=== PATIENT | female | born 1980 | race American Indian/Alaskan Native ===

== ENCOUNTER 2016-10-07 11:34 | Emergency (ER) | payer SELFPAY ==
[2016-10-07 11:50] VITALS: BP 115/81
[2016-10-07 12:20] LABS: Hematocrit 35.8 % (30.3-42.9); Hemoglobin 11.8 gm/dl (10.1-14.3); Mean Corpuscular HGB Conc 33 % (30-34); Mean Corpuscular Hemoglobin 29 pg (28-32); Mean Corpuscular Volume 89 fl (79-97); Platelet Count 288 K/mm3 (140-440); Red Blood Count 4.03 M/mm3 (3.65-5.03); Red Cell Distribution Width 13.8 % (13.2-15.2); White Blood Count 4.8 K/mm3 (4.5-11.0)
[2016-10-07 12:28] LABS: Bacteria,Urine 1+ /HPF (Negative); Bilirubin,Urine NEG (Negative); Blood,Urine NEG (Negative); Ketones,Urine NEG (Negative); Leukocyte Esterase,Urine SM (Negative); Nitrite,Urine NEG (Negative); Protein,Urine <15 mg/dL mg/dL (Negative); Urobilinogen,Urine < 2.0 mg/dL (<2.0)
[2016-10-07 12:29] LABS: Anion Gap 18 mmol/L; Blood Urea Nitrogen 5 mg/dL (7-17); Calcium 9.2 mg/dL (8.4-10.2); Carbon Dioxide 22 mmol/L (22-30); Chloride 105.1 mmol/L (98-107); Glucose 88 mg/dL (65-100); Potassium 4.3 mmol/L (3.6-5.0); Sodium 141 mmol/L (137-145)
[2016-10-07] MEDS ORDERED: ZOFRAN ODT PO ONE (14:01)
--- NOTE | 2016-10-07 14:24 | Emergency Department Report ---
ED N/V/D HPI - General Chief complaint: Nausea/Vomiting/Diarrhea Stated complaint: VOMITING AND DIARRHEA Time Seen by Provider: 10/07/16 13:48 Source: patient Mode of arrival: Ambulatory Limitations: No Limitations - History of Present Illness Initial comments: Patient comes in to the ER today with complaints of diarrhea, nausea, vomiting that started 2 days ago. Patient states she woke up not feeling good with subsequent diarrhea to follow. Patient denies any travel outside the country. Patient states last menstrual cycle was 15 days ago. Patient asking and concerned as if she might be . Vision further notes that the diarrhea has seemed to stop that she is still very nauseous with vomiting. MD complaint: nausea, vomiting, diarrhea, abdominal pain -: days(s) (2) Description of Diarrhea: water Location: diffuse Radiation: none Severity: moderate Quality: cramping Consistency: intermittent Improves with: none Worsens with: eating Associated Symptoms: nausea/vomiting. denies: fever/chills, headaches, dysuria - Related Data Previous Rx's Medication Instructions Recorded Last Taken Type Ciprofloxacin HCl [Ciprofloxacin 500 mg PO Q12HR 7 Days 10/07/16 Unknown Rx TAB] Dicyclomine [Bentyl] 10 mg PO QID PRN #12 capsule 10/07/16 Unknown Rx Promethazine [Phenergan TAB] 25 mg PO Q8HR PRN #12 tab 10/07/16 Unknown Rx Allergies Allergy/AdvReac Type Severity Reaction Status Date / Time No Known Allergies Allergy Unverified 10/07/16 11:44 ED Review of Systems ROS: Stated complaint: VOMITING AND DIARRHEA Other details as noted in HPI Constitutional: denies: chills, fever Eyes: denies: eye pain, eye discharge, vision change ENT: denies: ear pain, throat pain Respiratory: denies: cough, shortness of breath, wheezing Cardiovascular: denies: chest pain, palpitations Endocrine: no symptoms reported Gastrointestinal: abdominal pain, nausea, vomiting, diarrhea. denies: constipation, hematemesis, melena, hematochezia Genitourinary: denies: urgency, dysuria, discharge Musculoskeletal: denies: back pain, joint swelling, arthralgia Skin: denies: rash, lesions Neurological: denies: headache, weakness, paresthesias Psychiatric: denies: anxiety, depression Hematological/Lymphatic: denies: easy bleeding, easy bruising ED Past Medical Hx - Past Medical History Previous Medical History?: Yes - Surgical History Past Surgical History?: Yes Additional Surgical History: x 2 - Social History Smoking Status: Never Smoker Substance Use Type: Tranquilizers - Medications Home Medications: Home Medications Medication Instructions Recorded Confirmed Last Taken Type Ciprofloxacin HCl [Ciprofloxacin 500 mg PO Q12HR 7 Days 10/07/16 Unknown Rx TAB] Dicyclomine [Bentyl] 10 mg PO QID PRN #12 capsule 10/07/16 Unknown Rx Promethazine [Phenergan TAB] 25 mg PO Q8HR PRN #12 tab 10/07/16 Unknown Rx ED Physical Exam - General Limitations: No Limitations General appearance: alert, in no apparent distress - Head Head exam: Present: atraumatic, normocephalic - Eye Eye exam: Present: normal appearance - ENT ENT exam: Present: normal orophraynx, mucous membranes dry, mucous membranes moist - Neck Neck exam: Present: normal inspection - Respiratory Respiratory exam: Present: normal lung sounds bilaterally. Absent: respiratory distress, wheezes, rales, rhonchi - Cardiovascular Cardiovascular Exam: Present: regular rate, normal rhythm. Absent: systolic murmur, diastolic murmur, rubs, gallop - GI/Abdominal GI/Abdominal exam: Present: soft, tenderness (generalized abdominal tenderness.) , hyperactive bowel sounds. Absent: distended, guarding, rebound, rigid - Extremities Exam Extremities exam: Present: normal inspection - Back Exam Back exam: Present: normal inspection - Neurological Exam Neurological exam: Present: alert, oriented X3 - Psychiatric Psychiatric exam: Present: normal affect, normal mood - Skin Skin exam: Present: warm, dry, intact, normal color. Absent: rash ED Course Vital Signs 10/07/16 11:44 Temperature 98.2 F Pulse Rate 71 Respiratory 20 Rate Blood Pressure 115/81 O2 Sat by Pulse 100 Oximetry ED Medical Decision Making - Lab Data Result diagrams: 10/07/16 11:54 10/07/16 11:54 Laboratory results reviewed and discussed with patient in room. Only abnormal finding in lab testing is that of potential urinary tract infection as trace amount of leukocytes were noted - Medical Decision Making Patient is nontoxic and hemodynamically stable. Patient has normal blood testing results and patient is not . Patient's symptoms and exam findings are more consistent with gastroenteritis. Patient does seem to have mild headache tract infection and I will start patient on antibiotics for such as well as treat her symptomatically with some anti-emetics on an outpatient basis. The patient is to follow-up with her primary care doctor if symptoms don 't resolve or worsen. Patient is stable for discharge and in his [place] treatment plan. Patient was given Zofran 4 mg ODT here in the ER for symptomatic relief of her nausea. Critical care attestation.: If time is entered above; I have spent that time in minutes in the direct care of this critically ill patient, excluding procedure time. ED Disposition Clinical Impression: Nausea vomiting and diarrhea, UTI (urinary tract infection) Disposition: DISCHARGED TO HOME OR SELFCARE Is pt being admited?: No Does the pt Need Aspirin: No Condition: Good Instructions: Urinary Tract Infection in Women (ED), Gastroenteritis (ED), Acute Nausea and Vomiting (ED) Prescriptions: Ciprofloxacin HCl [Ciprofloxacin TAB] 500 mg PO Q12HR 7 Days Dicyclomine [Bentyl] 10 mg PO QID PRN #12 capsule PRN Reason: cramping Promethazine [Phenergan TAB] 25 mg PO Q8HR PRN #12 tab PRN Reason: Nausea Referrals: PRIMARY CARE, [Primary Care Provider] - 3-5 Days Time of Disposition: 14:33
== END 2016-10-07 14:39 | disposition home or self-care (01) ==
LOC: ED 11:34
DX: N39.0 Urinary tract infection, site not specified (principal); R11.2 Nausea with vomiting, unspecified; R19.7 Diarrhea, unspecified
CPT/HCPCS: 36415; 80048; 81001; 81025; 85025; 99283; Q0162

== ENCOUNTER 2017-01-03 18:20 | Emergency (ER) | payer OTHER ==
[2017-01-03 19:41] VITALS: BP 108/71
[2017-01-03 20:39] LABS: Basophils % (Auto) 0.7 % (0.0-1.8); Eosinophils % (Auto) 0.7 % (0.0-4.3); Hematocrit 38.6 % (30.3-42.9); Hemoglobin 12.6 gm/dl (10.1-14.3); Mean Corpuscular HGB Conc 33 % (30-34); Mean Corpuscular Hemoglobin 29 pg (28-32); Mean Corpuscular Volume 89 fl (79-97); Platelet Count 262 K/mm3 (140-440); Red Blood Count 4.36 M/mm3 (3.65-5.03); Red Cell Distribution Width 13.7 % (13.2-15.2); White Blood Count 5.8 K/mm3 (4.5-11.0)
[2017-01-04 00:21] LABS: Bilirubin,Urine NEG (Negative); Blood,Urine LG (Negative); Ketones,Urine NEG (Negative); Leukocyte Esterase,Urine NEG (Negative); Nitrite,Urine NEG (Negative); Protein,Urine <15 mg/dL mg/dL (Negative); Urobilinogen,Urine < 2.0 mg/dL (<2.0); WBC,Urine < 1.0 /HPF (0.0-6.0)
--- NOTE | 2017-01-24 15:20 | ED Elopement Review ---
ED Pt Elopement review - Results review Lab results: Laboratory Tests 01/03/17 01/03/17 01/03/17 20:20 20:20 20:20 WBC 5.8 RBC 4.36 Hgb 12.6 Hct 38.6 MCV 89 MCH 29 MCHC 33 RDW 13.7 Plt Count 262 Lymph % (Auto) 38.2 H Harper % (Auto) 5.1 Eos % (Auto) 0.7 Baso % (Auto) 0.7 Lymph # 2.2 Harper # 0.3 Eos # 0.0 Baso # 0.0 Seg Neutrophils % 55.3 Seg Neutrophils # 3.2 HCG, Quant 416.4 H Urine Color Urine Turbidity Urine pH Ur Specific [place] Urine Protein Urine Glucose (UA) Urine Ketones Urine Blood Urine Nitrite Urine Bilirubin Urine Urobilinogen Ur Leukocyte Esterase Urine WBC (Auto) Urine RBC (Auto) U Epithel Cells (Auto) Blood Type B POSITIVE Antibody Screen Negative 01/03/17 Unknown WBC RBC Hgb Hct MCV MCH MCHC RDW Plt Count Lymph % (Auto) [place] % (Auto) Eos % (Auto) Baso % (Auto) Lymph # Harper # Eos # Baso # Seg Neutrophils % Seg Neutrophils # HCG, Quant Urine Color Yellow Urine Turbidity Clear Urine pH 8.0 H Ur Specific [place] 1.010 Urine Protein <15 mg/dl Urine Glucose (UA) Neg Urine Ketones Neg Urine Blood Lg Urine Nitrite Neg Urine Bilirubin Neg Urine Urobilinogen < 2.0 Ur Leukocyte Esterase Neg Urine WBC (Auto) < 1.0 Urine RBC (Auto) 1.0 U Epithel Cells (Auto) 5.0 Blood Type Antibody Screen - Call Back decision Pt Call Back Decision: Call pt to return to ED KAYDEN (vaginal bleeding and should be further evaluated. Consider ultrasound)
== END 2017-01-04 04:05 | disposition left against medical advice (07) ==
LOC: ED 18:20
DX: O20.9 Hemorrhage in early pregnancy, unspecified (principal); Z3A.01 Less than 8 weeks gestation of pregnancy; Z53.21 Procedure and treatment not carried out due to patient leaving prior to being seen by health care provider
CPT/HCPCS: 36415; 81001; 84702; 85025; 86850; 86900; 86901

== ENCOUNTER 2017-01-04 10:31 | Emergency (ER) | payer OTHER ==
[2017-01-04 11:04] VITALS: BP 102/69
--- NOTE | 2017-01-04 11:14 | Emergency Department Report ---
Chief Complaint: Vaginal Bleeding Stated Complaint: 6 WKS PREG/BLEEDING/CRAMPS Time Seen by Provider: 01/04/17 11:10 - HPI History of Present Illness: PT states she has had vaginal bleeding since yesterday PT states she is 6 weeks . PT has not seen OB/ RN ICU yet - ROS Review of Systems: + lower abd pain + vaginal bleeding - Exam Vital Signs: Vital Signs 01/04/17 11:02 Temperature 98.8 F Pulse Rate 81 Respiratory 18 Rate Blood Pressure 102/69 O2 Sat by Pulse 100 Oximetry Physical Exam: PT looks well, non toxic. exam not done in triage MSE screening note: Focused history and physical exam performed. Due to findings the following was ordered: labs, us ED Disposition for MSE Condition: Stable
--- NOTE | 2017-01-04 14:20 | Ultrasound Report ---
ULTRASOUND OB LESS THAN 14 WEEKS FETUS ULTRASOUND OB TRANSVAGINAL HISTORY: Vaginal bleeding. TECHNIQUE: Transabdominal and transvaginal ultrasound with color doppler interrogation. No comparison. The uterus is anteverted and measures 10 x 4 x 5 cm. No uterine mass is identified. The endometrial stripe measures 11 mm. There is a tiny cyst within the endometrium measuring 2 mm. It is unclear if this represents a tiny gestational sac or endometrial cyst. It is too small to date. No pole, yolk sac or heart tones are demonstrated. The right ovary is unremarkable measuring 3.3 x 2.4 x 1.7 cm. The left ovary measures 4.9 x 1.8 x 3.4 cm and contains a 2.8 x 1.8 x 1.7 cm simple cyst. No pelvic fluid collection. IMPRESSION: No convincing intrauterine is demonstrated. There is a tiny cyst within the endometrium which could represent a very early gestational sac or endometrial cyst. Continued followup is recommended. Left ovarian cyst.
[2017-01-04 14:50] LABS: Hematocrit 38.3 % (30.3-42.9); Hemoglobin 12.4 gm/dl (10.1-14.3); Mean Corpuscular HGB Conc 32 % (30-34); Mean Corpuscular Hemoglobin 29 pg (28-32); Mean Corpuscular Volume 88 fl (79-97); Platelet Count 241 K/mm3 (140-440); Red Blood Count 4.36 M/mm3 (3.65-5.03); Red Cell Distribution Width 13.4 % (13.2-15.2); White Blood Count 4.8 K/mm3 (4.5-11.0)
--- NOTE | 2017-01-04 15:50 | Emergency Department Report ---
ED Female HPI - General Chief complaint: Vaginal Bleeding Stated complaint: 6 WKS PREG/BLEEDING/CRAMPS Time Seen by Provider: 01/04/17 11:10 Source: patient Mode of arrival: Ambulatory Limitations: No Limitations - History of Present Illness Initial comments: PT states she was here yesterday for same. PT states she is still bleeding. PT states she is 6 weeks . 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 PT states she has intermittent abd cramping along with her bleeding. PT states she had blood work done yesterday but she was not told the results. PT states she just wants to know what is going on. G3, P 2 Complaint: vaginal bleeding -: Gradual, days(s) Quality: cramping Consistency: constant Improves with: none Worsens with: none Are you Now?: Yes Last Menstrual Period: 11/21/16 EDC: 08/28/17 Associated Symptoms: vaginal bleeding, abdominal pain. denies: dysuria - Related Data Previous Rx's Medication Instructions Recorded Last Taken Type Acetaminophen/Codeine [Tylenol #3] 1 tab PO Q6H PRN #12 tab 01/04/17 Unknown Rx Ondansetron [Zofran Odt] 4 mg PO Q8HR PRN #10 tab.rapdis 01/04/17 Unknown Rx Allergies Allergy/AdvReac Type Severity Reaction Status Date / Time No Known Allergies Allergy Unverified 10/07/16 11:44 ED Review of Systems ROS: Stated complaint: 6 WKS PREG/BLEEDING/CRAMPS Other details as noted in HPI Comment: All other systems reviewed and negative Constitutional: denies: fever Gastrointestinal: abdominal pain. denies: vomiting Genitourinary: abnormal menses, other (vaginal spotting ). denies: dysuria ED Past Medical Hx - Past Medical History Previous Medical History?: No - Surgical History Past Surgical History?: Yes Additional Surgical History: x 2, appy - Social History Smoking Status: Never Smoker Substance Use Type: None - Medications Home Medications: Home Medications Medication Instructions Recorded Confirmed Last Taken Type Acetaminophen/Codeine [Tylenol #3] 1 tab PO Q6H PRN #12 tab 01/04/17 Unknown Rx Ondansetron [Zofran Odt] 4 mg PO Q8HR PRN #10 tab.rapdis 08/15/17 Unknown Rx ED Physical Exam - General Limitations: No Limitations General appearance: alert, in no apparent distress - Head Head exam: Present: atraumatic, normocephalic, normal inspection - Eye Eye exam: Present: normal appearance, PERRL, EOMI. Absent: conjunctival injection - ENT ENT exam: Present: normal exam, mucous membranes moist, normal external ear exam - Neck Neck exam: Present: normal inspection, full ROM - Respiratory Respiratory exam: Present: normal lung sounds bilaterally. Absent: respiratory distress, rhonchi - Cardiovascular Cardiovascular Exam: Present: regular rate, normal rhythm, normal heart sounds - GI/Abdominal GI/Abdominal exam: Present: soft. Absent: tenderness, guarding, rebound - Extremities Exam Extremities exam: Present: normal inspection, full ROM - Back Exam Back exam: Present: normal inspection, full ROM - Neurological Exam Neurological exam: Present: alert, oriented X3, normal gait - Psychiatric Psychiatric exam: Present: normal affect, normal mood - Skin Skin exam: Present: warm, dry, intact, normal color ED Course Vital Signs 01/04/17 11:02 Temperature 98.8 F Pulse Rate 81 Respiratory 18 Rate Blood Pressure 102/69 O2 Sat by Pulse 100 Oximetry - Reevaluation(s) Reevaluation #1: 01/04/17 15:51 PT aware of decrease in bhcg since yesterday. PT aware of US results. PT denies abd pain at this time. PT aware she will need to follow up with OB/ RADIATION ENGINEER. Strict return precautions given - Pulse Oximetry Interpretation Digit-Finger Initial Pulse Oximetry Readin Actions Taken: none ED Medical Decision Making - Lab Data Result diagrams: 01/04/17 14:11 Labs 01/04/17 01/04/17 01/04/17 11:18 14:11 14:11 WBC 4.8 RBC 4.36 Hgb 12.4 Hct 38.3 MCV 88 MCH 29 MCHC 32 RDW 13.4 Plt Count 241 HCG, Quant 274.3 H Blood Type B POSITIVE Antibody Screen Negative - Radiology Data Radiology results: report reviewed US- OB/ RADIATION ENGINEER - no definitive IUP seen, left ovarian cyst - Differential Diagnosis spontanous misscarriage, bleeding in early iup Critical Care Time: No Critical care attestation.: If time is entered above; I have spent that time in minutes in the direct care of this critically ill patient, excluding procedure time. ED Disposition Clinical Impression: Threatened in early , Left ovarian cyst Disposition: DC- TO HOME OR SELFCARE Is pt being admited?: No Does the pt Need Aspirin: No Condition: Stable Instructions: Spontaneous Miscarriage (ED), Threatened Miscarriage (ED) Additional Instructions: No driving or alcohol after taking Tylenol #3 Return to the ED if you start having heavy vaginal bleeding (soaking a pad an hour) or pain that is not controlled Follow up with OB/ RADIATION ENGINEER in the next 3-5 days You may need repeat lab work and US Prescriptions: Acetaminophen/Codeine [Tylenol #3] 1 tab PO Q6H PRN #12 tab PRN Reason: Pain , Severe (7-10) Ondansetron [Zofran Odt] 4 mg PO Q8HR PRN #10 tab.rapdis PRN Reason: Nausea Referrals: PRIMARY CARE, [Primary Care Provider] - 3-5 Days JONNY QUIROZ MD [Staff Physician] - 3-5 Days [facility] [Outside] - 3-5 Days Forms: Accompanied Note Time of Disposition: 15:55
== END 2017-01-04 16:08 | disposition home or self-care (01) ==
LOC: ED 10:31
DX: O20.0 Threatened abortion (principal); O34.81 Maternal care for other abnormalities of pelvic organs, first trimester; N83.202 Unspecified ovarian cyst, left side
CPT/HCPCS: 36415; 76801; 76817; 84702; 85027; 86850; 86900; 86901

== ENCOUNTER 2017-11-16 05:43 | Inpatient (IN) | payer OTHER ==
[2017-11-16] MEDS ORDERED: BICITRA PO SCH (11:03)
[2017-11-16] MEDS ORDERED: PEPCID IV SCH (11:03)
[2017-11-16] MEDS ORDERED: REGLAN IV SCH (11:03)
[2017-11-16 11:18] LABS: Basophils % (Auto) 0.4 % (0.0-1.8); Eosinophils # (Auto) 0.1 K/mm3 (0.0-0.4); Eosinophils % (Auto) 0.8 % (0.0-4.3); Hematocrit 33.9 % (30.3-42.9); Hemoglobin 11.6 gm/dl (10.1-14.3); Lymphocytes # (Auto) 2.4 K/mm3 (1.2-5.4); Lymphocytes % (Auto) 33.2 % (13.4-35.0); Mean Corpuscular HGB Conc 34 % (30-34); Mean Corpuscular Hemoglobin 32 pg (28-32); Mean Corpuscular Volume 93 fl (79-97); Monocytes # (Auto) 0.7 K/mm3 (0.0-0.8); Monocytes % (Auto) 9.6 % (0.0-7.3); Platelet Count 197 K/mm3 (140-440); Red Blood Count 3.63 M/mm3 (3.65-5.03); Red Cell Distribution Width 14.6 % (13.2-15.2)
[2017-11-16] MEDS ORDERED: NACL 0.9% 1000 ML 0 ML ONE (11:32)
[2017-11-16] MEDS ORDERED: REGLAN ONE (11:33)
[2017-11-16] MEDS ORDERED: PEPCID IV ONE (11:33)
[2017-11-16] MEDS ORDERED: BICITRA ONE (11:33)
--- NOTE | 2017-11-16 11:37 | History and Physical Report ---
History of Present Illness Date of examination: 11/16/17 Date of admission: 11/16/17 10:25 Chief complaint: Repeat C Section History of present illness: Pt is a 36yo BF EDC 11/19/17; EGA 39 4/7 weeks presents for a Repeat C Section. She received late care with [facility] since 25 weeks and was refereed to [facility] due to history of demise and previous C Section x 2. records are available, but GBS is unknown. Past History Past Medical History: asthma Past Surgical History: appendectomy, section Family/Genetic History: hypertension Social history: no significant social history, - Obstetrical History Expected Date of Delivery: 11/19/17 Actual Gestation: 39 Week(s) 4 Day(s) : 3 Medications and Allergies Allergies Allergy/AdvReac Type Severity Reaction Status Date / Time No Known Allergies Allergy Unverified 10/07/16 11:44 Home Medications Medication Instructions Recorded Confirmed Last Taken Type Acetaminophen/Codeine [Tylenol #3] 1 tab PO Q6H PRN #12 tab 01/04/17 Unknown Rx Ondansetron [Zofran Odt] 4 mg PO Q8HR PRN #10 tab.rapdis 01/04/17 Unknown Rx Active Meds: Active Medications Citric Acid/Sodium Citrate (Bicitra) 30 ml PO ONCE JOO Stop: 11/16/17 23:00 Last Admin: 11/16/17 11:29 Dose: 30 ml Famotidine (Pepcid) 20 mg IV ONCE JOO Stop: 11/16/17 23:00 Last Admin: 11/16/17 11:29 Dose: 20 mg Cefazolin Sodium (Ancef/Sterile Water 2 Gm/20 Ml) 2 gm in 20 mls @ 80 mls/hr IV PREOP NR; Protocol Stop: 11/16/17 23:00 Lactated Ringer's (Lactated Ringers) 1,000 mls @ 2,250 mls/hr IV PREOP JOO Stop: 11/17/17 12:27 Last Admin: 11/16/17 11:29 Dose: 2,250 mls/hr Oxytocin/Sodium Chloride (Pitocin/Ns 20 Unit/1000ml Drip) 20 units in 1,000 mls @ 0 mls/hr IV TITR JOO Metoclopramide HCl (Reglan) 10 mg IV ONCE JOO Stop: 11/16/17 23:00 Last Admin: 11/16/17 11:28 Dose: 10 mg Review of Systems All systems: negative - Vital Signs Vital signs: Vital Signs Temp Resp 99.1 F 20 11/16/17 10:28 11/16/17 10:28 Temp Pulse Resp BP Pulse Ox 99.1 F 82 20 98 11/16/17 10:28 11/16/17 11:10 11/16/17 10:28 11/16/17 11:10 - Physical Exam Breasts: Positive: deferred Cardiovascular: Regular rate Lungs: Positive: Clear to auscultation Abdomen: Positive: normal appearance Genitourinary (Female): Positive: normal external genitalia Uterus: Positive: enlarged Extremities: Positive: normal - Obstetrical FHR: category 1 Uterine Contraction Monitor Mode: External Results Result Diagrams: 11/16/17 10:45 Abnormal lab results 11/16/17 Range/Units 10:45 RBC 3.63 L (3.65-5.03) M/mm3 [place] % (Auto) 9.6 H (0.0-7.3) % All other labs normal. Assessment and Plan - Patient Problems (1) 39 weeks gestation of Onset Date: 11/16/17 Current Visit: Yes Status: Acute Plan to address problem: A: IUP @ 39 4/7 weeks Previous C Section x 2 P: Admit to L&D for repeat C Section (2) Previous section Onset Date: 11/16/17 Current Visit: Yes Status: Acute
[2017-11-16] MEDS ORDERED: LACTATED RINGERS 1,000 ML ONE (11:47)
[2017-11-16] MEDS ORDERED: PITOCin/NS 20 UNIT/1000ML DRIP 20 UNITS/1,000 ML BAG IV SCH ×2 (12:00→14:00)
[2017-11-16] MEDS ORDERED: LACTATED RINGERS 1,000 ML IV SCH (12:00)
[2017-11-16] MEDS ORDERED: ANCEF/STERILE WATER 2 GM/20 ML 2 GM/20 ML SYRINGE IV NR (12:00)
[2017-11-16] MEDS ORDERED: MORPHINE ONE (12:07)
[2017-11-16] MEDS ORDERED: WATER FOR IRRIG STERILE IR ONE (12:40)
[2017-11-16] MEDS ORDERED: NACL 0.9% IR ONE (12:40)
[2017-11-16] MEDS ORDERED: XYLOCAINE MPF 2% ONE ×4 (12:51)
[2017-11-16] MEDS ORDERED: TORADOL ONE (12:53)
[2017-11-16] MEDS ORDERED: PHENERGAN PR PRN (13:37)
[2017-11-16] MEDS ORDERED: PHENERGAN PO PRN (13:37)
[2017-11-16] MEDS ORDERED: NARCAN 0.4 MG/1 ML IV PRN ×2 (13:37→13:50)
[2017-11-16] MEDS ORDERED: ZOFRAN IV PRN (13:37)
--- NOTE | 2017-11-16 13:37 | Anesthesia Consultation ---
Anesthesia Consult and Med Hx Date of service: 11/16/17 - Airway Anesthetic Teeth Evaluation: Good ROM Head & Neck: Adequate Mental/Hyoid Distance: Adequate Mallampati Class: Class II Intubation Access Assessment: Good - Pulmonary Exam CTA: Yes - Cardiac Exam Cardiac Exam: No Murmur - Pre-Operative Health Status ASA Pre-Surgery Classification: ASA2 Proposed Anesthetic Plan: Epidural - Pulmonary Hx Asthma: No COPD: No Hx Pneumonia: No - Cardiovascular System Hx Hypertension: No - Central Nervous System Hx Seizures: No Hx Psychiatric Problems: No - Endocrine Hx Renal Disease: No Hx End Stage Renal Disease: No Hx Hypothyroidism: No Hx Hyperthyroidism: No - Hematic Hx Anemia: No Hx Sickle Cell Disease: No - Other Systems Hx Alcohol Use: No
--- NOTE | 2017-11-16 13:37 | Post Anesthesia Evaluation ---
- Post Anesthesia Evaluation Patient Participated: Yes Airway Patent: Yes Stable Respiratory Function: Yes Nausea/Vomiting: No Temp > 96.8F: Yes Pain Manageable: Yes Adequeate Hydration: Yes Anesthesia Complications: No
--- NOTE | 2017-11-16 13:46 | Operative Report ---
Operative Report Operative Report: Date of procedure: 11/16/2017 Pre-operative diagnosis: 1. Intrauterine at 39-4/7 weeks 2. Previous 2 Post-operative diagnosis: Same Procedure name(s): Repeat low transverse section Surgeon: Selvin Medina MD Watch Inspector: None Anesthesia: Epidural anesthesia by Dr. Paredes EBL: 750 mL Findings: A 4256 g female Apgars 8 at 1 minute and 9 at 5 minutes. Clear amniotic fluid. Normal uterus with lower uterine adhesions. Normal tubes and ovaries bilaterally. Procedure: After the patient was prepped and draped in usual sterile fashion, and after satisfactory level of epidural anesthesia was obtained, the skin knife was used to make a transverse skin incision through the previous skin scars. The incision was excised down to layer of the fascia, which was nicked in the midline and extended laterally using the Bovie cautery. The rectus muscles were dissected off the rectus fascia both superiorly and inferiorly. The rectus bellies in the midline, and the peritoneum was entered under direct visualization. The peritoneal incision was extended superiorly and inferiorly. A bladder flap was created and the bladder blade was then placed. The uterus was scored in a curvilinear linear fashion, entered in the midline revealing clear amniotic fluid. The infant's head was delivered onto the surgical field, and the oropharynx and nasopharynx were bulb suctioned. The rest of the infant's body was delivered, cord was doubly clamped and cut and the was handed to the waiting respiratory team. The placenta was manually removed from the uterus, and the uterus removed from its normal anatomical position. After gentle uterine lavage, the incision was inspected and found to be without extensions. It was then closed in 2 layers using 0 Vicryl suture in a running interlocking fashion, the second layer imbricating the first. After good hemostasis was achieved, copious amounts or irrigation was performed, and the gutters were suctioned free of blood and blood clots. The Tisseel sealant was sprayed across the uterine incision. The uterus was then returned to its normal anatomical position, and after excellent hemostasis assured, the peritoneum was re-approximated using 3-0 Vicryl suture in a running interlocking fashion, and then the rectus muscles were re-approximated using 3-0 Vicryl suture in a [id number] configuration. The fascia was then re-approximated using 0 Vicryl suture in running interlocking fashion. The subcutaneous layer was made hemostatic using Bovie cautery, the Tisseel sealant was sprayed across the fascial incision and the skin edges re- approximated using 4-0 Vicryl suture in a sub-cuticular fashion. Patient tolerated the procedure well was transported to recovery in stable condition.
[2017-11-16] MEDS ORDERED: TUCKS PAD TP PRN (13:50)
[2017-11-16] MEDS ORDERED: SENOKOT PO PRN (13:50)
[2017-11-16] MEDS ORDERED: LANSINOH TP PRN (13:50)
[2017-11-16] MEDS ORDERED: TORADOL IV PRN (13:50)
[2017-11-16] MEDS ORDERED: MYLICON PO PRN (13:50)
[2017-11-16] MEDS ORDERED: TYLENOL PO PRN (13:50)
[2017-11-16] MEDS ORDERED: MILK OF MAGNESIA PO PRN (13:50)
[2017-11-16] MEDS ORDERED: D5LR 1,000 ML IV SCH (14:00)
[2017-11-16] MEDS ORDERED: SODIUM CHLORIDE FLUSH SYRINGE 10 ML IV SCH (14:00)
[2017-11-16] MEDS ORDERED: fentaNYL-BUPIV 2 MCG/ML-0.125% 200 MCG/100 ML BAG EPIDURAL SCH (14:00)
[2017-11-16] MEDS ORDERED: SODIUM CHLORIDE FLUSH SYRINGE 10 ML IV NR (14:00)
[2017-11-16] MEDS ORDERED: SUBLIMAZE ONE (14:48)
[2017-11-16] MEDS ORDERED: SUBLIMAZE IV ONE (14:59)
[2017-11-16] MEDS ORDERED: ZOFRAN ONE (16:25)
[2017-11-16] MEDS ORDERED: PERCOCET 5/325 ONE (16:26)
[2017-11-16] MEDS: PERCOCET 5/325 PO PRN ×2 (16:45→22:59)
[2017-11-16] MEDS: ANCEF/NS 1 GM/50 ML 1 GM/50 ML BAG IV SCH (20:07)
[2017-11-16] MEDS: MOTRIN PO PRN (20:12)
[2017-11-17 01:34] LABS: Hematocrit 33.2 % (30.3-42.9); Hemoglobin 11.2 gm/dl (10.1-14.3)
[2017-11-17] MEDS: MOTRIN PO PRN ×4 (03:56→23:21)
[2017-11-17] MEDS: ANCEF/NS 1 GM/50 ML 1 GM/50 ML BAG IV SCH (03:57)
[2017-11-17] MEDS: PERCOCET 5/325 PO PRN ×3 (05:15→20:51)
[2017-11-17] MEDS ORDERED: BOOSTRIX IM ONE (06:00)
--- NOTE | 2017-11-17 08:42 | Progress Note ---
Assessment and Plan - Patient Problems (1) 39 weeks gestation of Onset Date: 11/16/17 Current Visit: Yes Status: Resolved (2) Previous section Onset Date: 11/16/17 Current Visit: Yes Status: Resolved (3) Status post Onset Date: 11/17/17 Current Visit: Yes Status: Resolved Plan to address problem: A: S/P Repeat C Section - POD #1 Doing well P: Continue RPOC Anticipate discharge in 24-48hrs Subjective - Subjective Date of service: 11/17/17 Principal diagnosis: s/p Repeat C Section - POD #1 Interval history: Pt is feeling well without complaints. Bleeding improved. Patient reports: appetite normal, voiding normally, pain well controlled, flatus , ambulating normally, no dizzy ambulation, no nauseated [place]: doing well, nursing well Objective - Vital Signs Latest vital signs: Vital Signs Temp Pulse Resp BP BP Pulse Ox 11/17/17 04:56 18 11/17/17 04:00 98.7 F 69 18 99/69 11/17/17 03:56 20 11/17/17 00:00 98.7 F 76 18 105/74 11/16/17 22:59 18 11/16/17 20:30 98.7 F 77 18 104/67 11/16/17 20:12 20 11/16/17 16:20 97.1 F L 72 18 103/62 97 11/16/17 15:22 75 110/70 11/16/17 14:26 71 18 108/63 99 11/16/17 14:11 75 15 99/65 100 11/16/17 13:56 65 16 108/60 100 11/16/17 13:41 72 17 110/47 100 11/16/17 13:36 72 18 100/58 100 11/16/17 13:31 80 16 105/67 100 11/16/17 13:26 97.8 F 84 16 112/52 98 11/16/17 11:10 82 98 11/16/17 11:05 80 99 11/16/17 10:28 99.1 F 20 Intake and Output 11/16/17 11/17/17 11/17/17 22:59 06:59 14:59 Intake Total 50 500 Output Total 1800 Balance 50 -1300 Intake: IV 50 ANCEF/NS 1 GM/50 ML 1 gm 50 In 50 ml @ 100 mls/hr IV Q8H [facility] Rx#:[id number] Oral 200 Intake, Free Water 300 Output: Urine 1800 Indwelling Catheter 1800 Other: Total, Intake Amount 200 Total, Output Amount 1000 - Exam Breasts: Present: deferred Cardiovascular: Present: Regular rate Lungs: Present: Clear to auscultation Abdomen: Present: normal appearance Uterus: Present: normal, firm, fundal height below umbilicus Extremities: Present: normal Incision: Present: normal, dry, intact, dressed - Labs Labs: Abnormal lab results 11/16/17 Range/Units 10:45 RBC 3.63 L (3.65-5.03) M/mm3 [place] % (Auto) 9.6 H (0.0-7.3) % Laboratory Tests 11/16/17 11/16/17 11/17/17 10:35 10:45 01:04 WBC 7.2 RBC 3.63 L Hgb 11.6 11.2 Hct 33.9 33.2 MCV 93 MCH 32 MCHC 34 RDW 14.6 Plt Count 197 Lymph % (Auto) 33.2 [place] % (Auto) 9.6 H Eos % (Auto) 0.8 Baso % (Auto) 0.4 Lymph # 2.4 [place] # 0.7 Eos # 0.1 Baso # 0.0 Seg Neutrophils % 56.0 Seg Neutrophils # 4.0 Blood Type B POSITIVE Antibody Screen Negative
[2017-11-17] MEDS: FEOSOL PO SCH (09:16)
[2017-11-17] MEDS: PRENATAL VITAMIN PO SCH (09:16)
[2017-11-17] MEDS ORDERED: M-M-R II VACCINE SUB-Q ONE (13:52)
[2017-11-18] MEDS: MOTRIN PO PRN ×3 (05:19→20:23)
[2017-11-18] MEDS: PRENATAL VITAMIN PO SCH (08:29)
[2017-11-18] MEDS: NORCO 5/325 PO PRN ×3 (08:30→20:23)
[2017-11-18] MEDS: FEOSOL PO SCH (08:30)
--- NOTE | 2017-11-18 10:59 | Progress Note ---
Assessment and Plan - Patient Problems (1) 39 weeks gestation of Onset Date: 11/16/17 Current Visit: Yes Status: Resolved (2) Previous section Onset Date: 11/16/17 Current Visit: Yes Status: Resolved (3) Status post Onset Date: 11/17/17 Current Visit: Yes Status: Resolved Plan to address problem: A: S/P Repeat C Section - POD #2 Doing well P: May go home today. Subjective - Subjective Date of service: 11/18/17 Principal diagnosis: s/p Repeat C Section - POD #2 Interval history: Pt is feeling well without complaints. She is tolerating a reg diet without nausea or vomiting, ambulating and voiding without difficulty. Patient reports: appetite normal, voiding normally, pain well controlled, flatus , ambulating normally, no dizzy ambulation, no nauseated [place]: doing well, nursing well Objective - Vital Signs Latest vital signs: Vital Signs Temp Pulse Resp BP BP Pulse Ox 11/18/17 07:30 98.7 F 78 18 101/68 11/18/17 00:00 98.8 F 81 18 108/79 11/17/17 16:52 98.4 F 83 20 105/77 96 11/17/17 11:40 98.1 F 70 16 101/69 100 Intake and Output 11/17/17 11/18/17 11/18/17 22:59 06:59 14:59 Intake Total 425 200 Balance 425 200 Intake: IV 125 Right Forearm 125 Oral 200 Intake, Free Water 300 Other: Total, Intake Amount 200 - Exam Breasts: Present: deferred Cardiovascular: Present: Regular rate Lungs: Present: Clear to auscultation Abdomen: Present: normal appearance, soft Uterus: Present: normal, firm, fundal height below umbilicus Extremities: Present: normal Incision: Present: normal, dry, intact
--- NOTE | 2017-11-18 13:11 | Discharge Summary ---
Providers - Providers Date of Admission: 11/16/17 10:25 Date of discharge: 11/18/17 Attending physician: OPAL SHEN Primary care physician: STAFFING ACCOUNT MANAGER Hospitalization Reason for admission: section, IUP at term Procedure: section, repeat low transverse Episiotomy: none Laceration: none Incision: normal, dry, intact Other procedures: none complications: none Discharge diagnosis: IUP at term delivered [place] baby: female Hospital course: Pt is a 36yo BF EDC 11/19/17; EGA 39 4/7 weeks who presented for a Repeat C Section. She tolerated the procedure well, and post operative course was unremarkable. By POD #2 she was tolerating a reg diet without nausea or vomiting, ambulating and voiding without difficulty. She was therefore discharged to home on POD #2 in stable condition. Condition at discharge: Good Disposition: DC-01 TO HOME OR SELFCARE - Discharge Diagnoses (1) 39 weeks gestation of Status: Resolved (2) Previous section Status: Resolved (3) Status post Status: Resolved Plan - Discharge Medications Prescriptions: Ferrous Sulfate [Feosol 325 MG tab] 325 mg PO BID #60 tablet HYDROcodone/APAP 5-325 [[place] 5/325] 1 each PO Q6HR PRN #30 tablet PRN Reason: Pain Ibuprofen [Motrin] 800 mg PO Q8HR PRN #30 tablet PRN Reason: Moder Pain Unrelieved By [place] Vit Calc,Iron,Folic [ Vitamins] 1 each PO DAILY #30 tablet - Provider Discharge Summary Activity: routine, no sex for 6 weeks, no heavy lifting 4 weeks, no strenuous exercise Diet: routine Instructions: routine Additional instructions: [] Smoking cessation referral if applicable(refer to patient education folder for contact #) [] Refer to [facility] Booklet Call your doctor immediately for: * Fever > 100.5 * Heavy vaginal bleeding ( >1 pad per hour) * Severe persistent headache * Shortness of breath * Reddened, hot, painful area to leg or breast * Drainage or odor from incision. * Keep incision clean and dry at all times and follow doctor's instructions regarding bathing/showering - Follow up plan Follow up: ZORAIDA HEIN NP [Referring] - 14 Days OPAL SHEN MD [Staff Physician] - 14 Days PRIMARY CARE, [Primary Care Provider] - 14 Days
[2017-11-18 19:30] VITALS: BP 108/67
== END 2017-11-18 20:15 | disposition home or self-care (01) | DRG 766 ==
LOC: UNDOADMIN 05:43 → APU 05:43 → UNDODISIN 06:07 → APU 10:25 → OB 16:25
PROVIDERS: ADMIT Obstetrics & Gynecology; ATTEND Obstetrics & Gynecology
PROC: 10D00Z1 Extraction of Products of Conception, Low, Open Approach (ICD-10-PCS; principal; 2017-11-16)
PROC: 3E0234Z Introduction of Serum, Toxoid and Vaccine into Muscle, Percutaneous Approach (ICD-10-PCS; 2017-11-16)
DX: O34.211 Maternal care for low transverse scar from previous cesarean delivery (principal); O99.52 Diseases of the respiratory system complicating childbirth; J45.909 Unspecified asthma, uncomplicated; Z3A.39 39 weeks gestation of pregnancy; Z37.0 Single live birth; Z23 Encounter for immunization; Z90.49 Acquired absence of other specified parts of digestive tract; Z82.49 Family history of ischemic heart disease and other diseases of the circulatory system
CPT/HCPCS: 36415; 85014; 85018; 85025; 86850; 86900; 86901; 99211; A6250; C9250; G0463; J0690; J1885; J2270; J2405; J2590; J2765; J3010; J7030; J7120; J7121

== ENCOUNTER 2019-01-08 06:26 | Inpatient (IN) | payer MEDICAID, OTHER ==
[2019-01-08] MEDS ORDERED: DEXMEDETOMIDINE IV ONE (06:45)
--- NOTE | 2019-01-08 06:50 | Anesthesia Day of Surgery ---
Anesthesia Day of Surgery - Day of Surgery Patient Examined: Yes Patient H&P Reviewed: Yes Patient is NPO: Yes
--- NOTE | 2019-01-08 06:50 | Anesthesia Consultation ---
Anesthesia Consult and Med Hx Date of service: 01/08/19 - Airway Anesthetic Teeth Evaluation: Good ROM Head & Neck: Adequate Mental/Hyoid Distance: Adequate Mallampati Class: Class II Intubation Access Assessment: Probably Good - Pulmonary Exam CTA: Yes - Cardiac Exam Cardiac Exam: RRR - Pre-Operative Health Status ASA Pre-Surgery Classification: ASA2 Proposed Anesthetic Plan: Spinal - Pulmonary Hx Asthma: No COPD: No Hx Pneumonia: No - Cardiovascular System Hx Hypertension: No - Central Nervous System Hx Seizures: No Hx Psychiatric Problems: No - Endocrine Hx Renal Disease: No Hx End Stage Renal Disease: No Hx Hypothyroidism: No Hx Hyperthyroidism: No - Hematic Hx Anemia: No Hx Sickle Cell Disease: No - Other Systems Hx Alcohol Use: No
[2019-01-08] MEDS ORDERED: LACTATED RINGERS 1,000 ML ONE (07:13)
[2019-01-08] MEDS ORDERED: PITOCin/NS 20 UNIT/1000ML DRIP 20,000 MILLIUNITS/1,000 ML BAG IV ONE (07:32)
[2019-01-08 07:35] LABS: Hematocrit 37.1 % (30.3-42.9); Hemoglobin 12.7 gm/dl (10.1-14.3); Mean Corpuscular HGB Conc 34 % (30-34); Mean Corpuscular Volume 90 fl (79-97); Platelet Count 192 K/mm3 (140-440); Red Blood Count 4.11 M/mm3 (3.65-5.03); Red Cell Distribution Width 14.4 % (13.2-15.2)
[2019-01-08] MEDS ORDERED: REGLAN IV NR ×2 (08:00→09:00)
[2019-01-08] MEDS ORDERED: LACTATED RINGERS 1,000 ML IV SCH ×2 (08:00→09:00)
[2019-01-08] MEDS ORDERED: PEPCID IV NR ×2 (08:00→09:00)
[2019-01-08] MEDS ORDERED: BICITRA PO NR ×2 (08:00→09:00)
--- NOTE | 2019-01-08 08:44 | History and Physical Report ---
History of Present Illness Date of examination: 01/08/19 Date of admission: 01/08/19 06:26 Chief complaint: Repeat C Section History of present illness: Pt is a 38yo BF EDC 01/15/19; EGA 39 0/7 weeks presents for a Repeat C Section #4. She received late care at [facility] since 22 weeks and co-managed by [facility] for h/o cardiac malformation, and previous C Section x 3. records are available, but GBS is unknown Past History Past Medical History: no pertinent history Past Surgical History: section (x3) Social history: no significant social history, - Obstetrical History Expected Date of Delivery: 01/15/19 Actual Gestation: 39 Week(s) 1 Day(s) : 3 Medications and Allergies Allergies Allergy/AdvReac Type Severity Reaction Status Date / Time No Known Allergies Allergy Unverified 10/07/16 11:44 Home Medications Medication Instructions Recorded Confirmed Last Taken Type Acetaminophen/Codeine [Tylenol #3] 1 tab PO Q6H PRN #12 tab 01/04/17 11/16/17 Unknown Rx Ondansetron [Zofran Odt] 4 mg PO Q8HR PRN #10 tab.rapdis 01/04/17 11/16/17 Unknown Rx Ferrous Sulfate [Feosol 325 MG tab] 325 mg PO BID #60 tablet 11/16/17 Unknown Rx HYDROcodone/APAP 5-325 [[place] 1 each PO Q6HR PRN #30 tablet 11/16/17 Unknown Rx 5/325] Ibuprofen [Motrin] 800 mg PO Q8HR PRN #30 tablet 11/16/17 Unknown Rx Vit Calc,Iron,Folic 1 each PO DAILY #30 tablet 11/16/17 Unknown Rx [ Vitamins] Active Meds: Active Medications Citric Acid/Sodium Citrate (Bicitra) 30 ml PO ONCE NR Stop: 01/08/19 16:00 Last Admin: 01/08/19 07:38 Dose: 30 ml Documented by: Famotidine (Pepcid) 20 mg IV PREOP NR Stop: 01/08/19 16:00 Last Admin: 01/08/19 07:39 Dose: 20 mg Documented by: Lactated Ringer's (Lactated Ringers) 1,000 mls @ 999 mls/hr IV DIRECT JOO Metoclopramide HCl (Reglan) 10 mg IV PREOP NR Stop: 01/08/19 16:00 Last Admin: 01/08/19 07:39 Dose: 10 mg Documented by: Review of Systems All systems: negative - Vital Signs Vital signs: Vital Signs Pulse BP 86 103/63 01/08/19 07:14 01/08/19 07:14 Temp Pulse Resp BP Pulse Ox 98.1 F 79 14 100/68 01/08/19 07:16 01/08/19 08:14 01/08/19 07:16 01/08/19 08:14 - Physical Exam Breasts: Positive: deferred Cardiovascular: Regular rate Lungs: Positive: Clear to auscultation Abdomen: Positive: normal appearance Genitourinary (Female): Positive: normal external genitalia Vagina: Positive: normal moisture Uterus: Positive: enlarged Extremities: Positive: normal - Obstetrical FHR: category 1 Uterine Contraction Monitor Mode: External Uterine Contraction Pattern: Absent Results Result Diagrams: 01/08/19 22:38 All other labs normal. Assessment and Plan - Patient Problems (1) 39 weeks gestation of Onset Date: 01/08/19 Current Visit: No Status: Resolved Plan to address problem: A: IUP @ 39 0/7 weeks Previous C Section x 3 AMA P: Admit to L&D for a Repeat C Section (2) Previous section Onset Date: 01/08/19 Current Visit: No Status: Resolved (3) AMA (advanced maternal age) multigravida 35+ Onset Date: 01/08/19 Current Visit: Yes Status: Resolved Qualifiers: Trimester: third trimester Qualified Code(s): O09.523 - Supervision of elderly multigravida, third trimester
[2019-01-08] MEDS ORDERED: PITOCin/NS 20 UNIT/1000ML DRIP 20 UNITS/1,000 ML BAG IV SCH ×2 (09:00→11:00)
[2019-01-08] MEDS ORDERED: ANCEF/STERILE WATER 2 GM/20 ML 2 GM/20 ML SYRINGE IV NR (09:00)
[2019-01-08] MEDS ORDERED: NACL 0.9% IR ONE (09:13)
[2019-01-08] MEDS ORDERED: WATER FOR IRRIG STERILE IR ONE (09:13)
[2019-01-08] MEDS ORDERED: VERSED ONE ×2 (09:55)
[2019-01-08] MEDS ORDERED: KETALAR ONE (09:57)
[2019-01-08] MEDS ORDERED: ZOFRAN ONE (10:00)
--- NOTE | 2019-01-08 10:42 | Post Anesthesia Evaluation ---
- Post Anesthesia Evaluation Patient Participated: Yes Airway Patent: Yes Stable Respiratory Function: Yes Nausea/Vomiting: No Temp > 96.8F: Yes Pain Manageable: Yes Adequeate Hydration: Yes Anesthesia Complications: No Block Receding Appropriately: Yes Patient on Ventilator: No
[2019-01-08] MEDS ORDERED: ZOFRAN IV PRN (10:43)
[2019-01-08] MEDS ORDERED: DILAUDID IV PRN ×2 (10:43)
[2019-01-08] MEDS ORDERED: BENADRYL IV PRN (10:43)
[2019-01-08] MEDS ORDERED: TYLENOL PO PRN (10:47)
[2019-01-08] MEDS ORDERED: LANSINOH TP PRN (10:47)
[2019-01-08] MEDS ORDERED: TUCKS PAD TP PRN (10:47)
[2019-01-08] MEDS ORDERED: NARCAN 0.4 MG/1 ML IV PRN (10:47)
[2019-01-08] MEDS ORDERED: PHENERGAN PR PRN (10:47)
[2019-01-08] MEDS ORDERED: TORADOL IV PRN (10:47)
[2019-01-08] MEDS ORDERED: MILK OF MAGNESIA PO PRN (10:47)
[2019-01-08] MEDS ORDERED: SODIUM CHLORIDE FLUSH SYRINGE 10 ML IV SCH ×2 (11:00)
--- NOTE | 2019-01-08 11:50 | Operative Report ---
Operative Report Operative Report: Date of procedure: 01/08/2019 Pre-operative diagnosis: Intrauterine at 39-0/7 weeks 2. Previous 3 3. Advanced maternal age Post-operative diagnosis: Same Procedure name(s): Repeat low transverse section Surgeon: Selvin Medina MD Peeler Operator: None Anesthesia: Spinal anesthesia by Jessica Ruiz CRNA EBL: 600 mL Findings: A 3119 g female infant Apgars 8 at 1 minute and 9 at 5 minutes. Clear amniotic fluid. Normal uterus. Normal tubes and ovaries bilaterally. Procedure: After the patient was prepped and draped in usual sterile fashion, and after satisfactory level of epidural anesthesia was obtained, the skin knife was used to make a transverse skin incision through the previous skin scars. The incision was excised down to layer of the fascia, which was nicked in the midline and extended laterally using the Bovie cautery. The rectus muscles were dissected off the rectus fascia both superiorly and inferiorly. The rectus bellies in the midline, and the peritoneum was entered under direct visualization. The peritoneal incision was extended superiorly and inferiorly. A bladder flap was created and the bladder blade was then placed. The uterus was scored in a curvilinear linear fashion, entered in the midline revealing clear amniotic fluid. The infant's head was delivered onto the surgical field, and the oropharynx and nasopharynx were bulb suctioned. The rest of the infant's body was delivered, cord was doubly clamped and cut and the was handed to the waiting respiratory team. The placenta was manually removed from the uterus, and the uterus removed from its normal anatomical position. After gentle uterine lavage, the incision was inspected and found to be without extensions. It was then closed in 2 layers using 0 Vicryl suture in a running interlocking fashion, the second layer imbricating the first. After good hemostasis was achieved, copious amounts or irrigation was performed, and the gutters were suctioned free of blood and blood clots. The Tisseal sealant was sprayed across the uterine incision, and the uterus was then returned to its normal anatomical position. After excellent hemostasis assured, the peritoneum was re-approximated using 3-0 Vicryl suture in a running interlocking fashion, and then the rectus muscles were re-approximated using 3-0 Vicryl suture in a [id number] configuration. The fascia was then re-approximated using 0 Vicryl suture in running interlocking fashion. The subcutaneous layer was made hemostatic using Bovie cautery, and the skin edges re-approximated using 4-0 Vicryl suture in a sub-cuticular fashion. Patient tolerated the procedure well was transported to recovery in stable condition.
[2019-01-08] MEDS ORDERED: D5LR 1,000 ML IV SCH (12:00)
[2019-01-08] MEDS: PERCOCET 5/325 PO PRN ×2 (17:00→22:25)
[2019-01-08] MEDS: ANCEF/NS 1 GM/50 ML 1 GM/50 ML BAG IV SCH (18:00)
[2019-01-08 23:09] LABS: Hematocrit 33.6 % (30.3-42.9); Hemoglobin 11.5 gm/dl (10.1-14.3)
[2019-01-09] MEDS: ANCEF/NS 1 GM/50 ML 1 GM/50 ML BAG IV SCH (01:34)
[2019-01-09] MEDS: PERCOCET 5/325 PO PRN ×3 (04:32→23:41)
[2019-01-09] MEDS ORDERED: BOOSTRIX IM ONE (06:00)
[2019-01-09] MEDS: IBUPROFEN PO PRN ×2 (07:57→20:57)
[2019-01-09] MEDS: PRENATAL VITAMIN PO SCH (10:26)
[2019-01-09] MEDS: FEOSOL PO SCH (10:26)
[2019-01-09] MEDS: MYLICON PO PRN ×2 (10:33→20:57)
[2019-01-09] MEDS ORDERED: M-M-R II VACCINE SUB-Q ONE (10:48)
--- NOTE | 2019-01-09 13:09 | Progress Note ---
Assessment and Plan - Patient Problems (1) 39 weeks gestation of Onset Date: 01/08/19 Current Visit: No Status: Resolved (2) Previous section Onset Date: 01/08/19 Current Visit: No Status: Resolved (3) AMA (advanced maternal age) multigravida 35+ Onset Date: 01/08/19 Current Visit: Yes Status: Resolved Qualifiers: Trimester: third trimester Qualified Code(s): O09.523 - Supervision of elderly multigravida, third trimester (4) Status post Onset Date: 01/09/19 Current Visit: No Status: Resolved Plan to address problem: A: S/P Repeat C Section - POD #1 Doing well Asymptomatic anemia - stable P: Continue RPOC Anticipate discharge in 24-48hrs Subjective - Subjective Date of service: 01/09/19 Principal diagnosis: s/p C Section - POD #1 Interval history: Pt is feeling well except complains of nausea, no vomiting. Bleeding has improved. Patient reports: appetite normal, voiding normally, pain well controlled, flatus, ambulating normally, nauseated, no dizzy ambulation : doing well, nursing well, bottle feeding Objective - Vital Signs Latest vital signs: Vital Signs Temp Pulse Resp BP BP Pulse Ox 01/09/19 10:03 98.3 F 74 18 101/67 01/09/19 05:12 98.5 F 81 18 104/67 95 01/09/19 00:24 98.1 F 85 20 97/63 96 01/08/19 19:47 98.1 F 75 20 103/68 97 01/08/19 15:59 97.7 F 78 18 107/69 Intake and Output 01/08/19 01/09/19 01/09/19 22:59 06:59 14:59 Intake Total 770 480 Output Total 1600 400 800 Balance -830 -400 -320 Intake: IV 50 ANCEF/NS 1 GM/50 ML 1 gm 50 In 50 ml @ 100 mls/hr IV Q8H [facility] Rx#:[id number] Oral 720 480 Output: Urine 1600 400 800 Indwelling Catheter 1600 Void 400 800 Other: Total, Intake Amount 240 480 Total, Output Amount 800 400 800 # Voids Indwelling Catheter 1 Void 2 - Exam Abdomen: Present: normal appearance, soft Uterus: Present: normal, firm, fundal height below umbilicus Extremities: Present: normal Incision: Present: normal, dry, intact, dressed - Labs Labs: Laboratory Tests 01/08/19 01/08/19 01/08/19 06:31 07:01 07:01 WBC 8.3 RBC 4.11 Hgb 12.7 Hct 37.1 MCV 90 MCH 31 MCHC 34 RDW 14.4 Plt Count 192 RPR Nonreactive Blood Type B POSITIVE Antibody Screen Negative 01/08/19 22:38 WBC RBC Hgb 11.5 Hct 33.6 MCV MCH MCHC RDW Plt Count RPR Blood Type Antibody Screen
[2019-01-09] MEDS: NORCO 5/325 PO PRN (16:31)
[2019-01-09] MEDS: SENOKOT PO PRN (20:57)
[2019-01-09] MEDS ORDERED: MILK OF MAGNESIA PO PRN (23:23)
--- NOTE | 2019-01-10 08:22 | Progress Note ---
Assessment and Plan - Patient Problems (1) 39 weeks gestation of Onset Date: 01/08/19 Current Visit: No Status: Resolved (2) Previous section Onset Date: 01/08/19 Current Visit: No Status: Resolved (3) AMA (advanced maternal age) multigravida 35+ Onset Date: 01/08/19 Current Visit: Yes Status: Resolved Qualifiers: Trimester: third trimester Qualified Code(s): O09.523 - Supervision of elderly multigravida, third trimester (4) Status post Onset Date: 01/09/19 Current Visit: No Status: Resolved Plan to address problem: A: S/P Repeat C Section - POD #2 Doing well Asymptomatic anemia - stable P: May go home tomorrow. Subjective - Subjective Date of service: 01/10/19 Principal diagnosis: s/p C Section - POD #2 Interval history: Pt is feeling well except with complaints of a headache this morning. She is tolerating a reg diet without nausea or vomiting, ambulating and voiding without difficulty. Patient reports: appetite normal, voiding normally, pain well controlled, flatus, ambulating normally, no dizzy ambulation, no nauseated : doing well, nursing well, bottle feeding Objective - Vital Signs Latest vital signs: Vital Signs Temp Pulse Resp BP 01/10/19 00:00 98.6 F 68 18 101/70 01/09/19 16:17 98.2 F 70 18 90/59 01/09/19 10:03 98.3 F 74 18 101/67 Intake and Output 01/09/19 01/10/19 01/10/19 22:59 06:59 14:59 Intake Total 480 300 Balance 480 300 Intake: Oral 480 Intake, Free Water 300 Other: Total, Intake Amount 480 # Voids Void 1 - Exam Abdomen: Present: normal appearance, soft Uterus: Present: normal, firm, fundal height below umbilicus Extremities: Present: normal Incision: Present: normal, dry, intact, dressed
[2019-01-10] MEDS: PRENATAL VITAMIN PO SCH (09:29)
[2019-01-10] MEDS: FEOSOL PO SCH (09:30)
[2019-01-10] MEDS: IBUPROFEN PO PRN ×2 (09:30→21:20)
[2019-01-10] MEDS: NORCO 5/325 PO PRN (13:53)
[2019-01-10] MEDS: SENOKOT PO PRN (22:40)
[2019-01-10] MEDS: PERCOCET 5/325 PO PRN (22:40)
[2019-01-11] MEDS: IBUPROFEN PO PRN (03:59)
[2019-01-11] MEDS: PERCOCET 5/325 PO PRN (05:39)
--- NOTE | 2019-01-11 08:23 | Progress Note ---
Assessment and Plan - Patient Problems (1) AMA (advanced maternal age) multigravida 35+ Onset Date: 01/08/19 Current Visit: Yes Status: Resolved Qualifiers: Trimester: third trimester Qualified Code(s): O09.523 - Supervision of elderly multigravida, third trimester (2) Status post Onset Date: 01/09/19 Current Visit: No Status: Resolved Plan to address problem: A: S/P Repeat C Section - POD #3 Doing well Asymptomatic anemia - stable P: May go home today. Subjective - Subjective Date of service: 01/11/19 Principal diagnosis: s/p C Section - POD #3 Interval history: Pt is feeling well without complaints. She is tolerating a reg diet without nausea or vomiting, ambulating and voiding without difficulty. Patient reports: appetite normal, voiding normally, pain well controlled, flatus, ambulating normally, no dizzy ambulation, no nauseated [place]: doing well, nursing well, bottle feeding Objective - Vital Signs Latest vital signs: Vital Signs Temp Pulse Resp BP BP Pulse Ox 01/10/19 23:30 98.4 F 64 16 108/72 01/10/19 16:14 97.8 F 77 18 92/62 97 Intake and Output 01/10/19 01/11/19 01/11/19 22:59 06:59 14:59 Intake Total 540 200 Balance 540 200 Intake: Oral 240 200 Intake, Free Water 300 Other: Total, Intake Amount 240 200 # Voids Void 1 - Exam Abdomen: Present: normal appearance, soft Uterus: Present: normal, firm, fundal height below umbilicus Extremities: Present: normal Incision: Present: normal, dry, intact
--- NOTE | 2019-01-11 09:18 | Discharge Summary ---
Providers - Providers Date of Admission: 01/08/19 06:26 Date of discharge: 01/11/19 Attending physician: OPAL SHEN Primary care physician: BASE REMOVER Hospitalization Reason for admission: section, IUP at term Delivery: Procedure: section, repeat low transverse Episiotomy: none Laceration: none Incision: normal, dry, intact Other procedures: none complications: none Discharge diagnosis: IUP at term delivered [place] baby: female Hospital course: Pt is a 38yo BF EDC 01/15/19; EGA 39 0/7 weeks who presented for a Repeat C Section #4. She received late care at [facility] since 22 weeks and co-managed by [facility] for h/o cardiac malformation, and previous C Section x 3. She underwent an uncomplicated Repeat C Section and tolerated the procedure well. By POD #2 she was tolerating a reg diet without nausea or vomiting, ambulating and voiding without difficulty. She was therefore discharged to home on POD #3 in stable condition. Condition at discharge: Good Disposition: DC-01 TO HOME OR SELFCARE - Discharge Diagnoses (1) AMA (advanced maternal age) multigravida 35+ Status: Resolved Qualifiers: Trimester: third trimester Qualified Code(s): O09.523 - Supervision of elderly multigravida, third trimester (2) Status post Status: Resolved Plan - Discharge Medications Prescriptions: Ferrous Sulfate [Feosol 325 MG tab] 325 mg PO BID #60 tablet Ibuprofen [Motrin 800 MG tab] 800 mg PO Q6H PRN #30 tablet PRN Reason: Pain, Mild (1-3) HYDROcodone/APAP 5-325 [[place] 5-325 mg TAB] 1 each PO Q6HR PRN #30 tablet PRN Reason: Pain, Moderate (4-6) Vit-Fe Fumar-FA [ Vitamin] 1 each PO QDAY #30 tablet - Provider Discharge Summary Activity: routine, no sex for 6 weeks, no heavy lifting 4 weeks, no strenuous exercise Diet: routine Instructions: routine Additional instructions: [] Smoking cessation referral if applicable(refer to patient education folder for contact #) [] Refer to [facility] Booklet Call your doctor immediately for: * Fever > 100.5 * Heavy vaginal bleeding ( >1 pad per hour) * Severe persistent headache * Shortness of breath * Reddened, hot, painful area to leg or breast * Drainage or odor from incision. * Keep incision clean and dry at all times and follow doctor's instructions regarding bathing/showering - Follow up plan Follow up: PRIMARY CARE, [Primary Care Provider] - 7 Days OPAL SHEN MD [Staff Physician] - 14 Days Forms: [facility] Discharge Summary, Discharge Signature Page
[2019-01-11 09:59] VITALS: BP 98/66
[2019-01-11] MEDS: PRENATAL VITAMIN PO SCH (10:34)
[2019-01-11] MEDS: FEOSOL PO SCH (10:34)
== END 2019-01-11 12:15 | disposition home or self-care (01) | DRG 788 ==
LOC: APU 06:26 → OB 12:05
PROVIDERS: ADMIT Obstetrics & Gynecology; ATTEND Obstetrics & Gynecology
PROC: 10D00Z1 Extraction of Products of Conception, Low, Open Approach (ICD-10-PCS; principal; 2019-01-08)
PROC: 3E0234Z Introduction of Serum, Toxoid and Vaccine into Muscle, Percutaneous Approach (ICD-10-PCS; 2019-01-09)
DX: O34.211 Maternal care for low transverse scar from previous cesarean delivery (principal); O99.02 Anemia complicating childbirth; D64.9 Anemia, unspecified; Z3A.39 39 weeks gestation of pregnancy; Z37.0 Single live birth; Z79.899 Other long term (current) drug therapy; Z23 Encounter for immunization
CPT/HCPCS: 36415; 85014; 85018; 85027; 86592; 86850; 86900; 86901; G0378; J0690; J1885; J2250; J2405; J2590; J2765; J3490; J7120